=== PATIENT | female | born 2000 | race Caucasian/White ===

== ENCOUNTER 2022-02-28 03:55 | Emergency (ER) | payer SELFPAY | END 2022-02-28 04:15 | disposition home or self-care (01) | LOC: CSHERS 03:55 | DX: R04.0 Epistaxis (principal) | CPT/HCPCS: 99283 ==

== ENCOUNTER 2022-10-14 17:47 | Emergency (ER) | payer OTHER ==
[2022-10-14] MEDS ORDERED: Ibuprofen 200 MG TAB ONE (18:08)
== END 2022-10-14 18:31 | disposition home or self-care (01) ==
LOC: CSHERS 17:47
DX: S20.219A Contusion of unspecified front wall of thorax, initial encounter (principal); S80.01XA Contusion of right knee, initial encounter; V89.2XXA Person injured in unspecified motor-vehicle accident, traffic, initial encounter
CPT/HCPCS: 99284